=== PATIENT | male | born 1945 | race Caucasian/White ===

== ENCOUNTER 2020-03-10 09:25 | Emergency (ER) | payer MEDICARE, OTHER ==
[~2020-03-10] VITALS: Ht 172.7 cm; Wt 66.2 kg
[~2020-03-10 09:25] MED LIST: CYAN50008 PO; Doxycycline Hyclate PO; GLIM1TAB18 PO; GLYB5TAB7 PO; METF-440 PO; MONT10TA27 PO; MULTIVITAMINS PO; PANT40TA2 PO; PRED20TA PO; [UNRECOGNIZED DRUG - OTHER] PO
--- NOTE | 2020-03-10 09:44 | NUR ---
Dr. Almaraz at the bedside for MSE.
[2020-03-10] MEDS ORDERED: OXCA150T5 PO (10:10)
[2020-03-10] MEDS ORDERED: MAGN400O6 PO (10:10)
[2020-03-10] MEDS ORDERED: QUET25TA PO (10:10)
[2020-03-10] MEDS ORDERED: MULT1TAB11 PO (10:15)
[2020-03-10] MEDS ORDERED: DOCU250C14 PO (10:22)
[2020-03-10] MEDS ORDERED: CRAN450T3 PO (10:22)
[2020-03-10] MEDS ORDERED: NA P133E PR (10:22)
[2020-03-10] MEDS ORDERED: ACET325T53 PO (10:24)
[2020-03-10 10:56] LABS: BASOPHILS % (AUTO) 0.4 % (0.0-2.0); EOSINOPHILS # (AUTO) 0.6 K/uL (0.0-0.7); HEMATOCRIT 42.3 % (36.7-47.1); LYMPHOCYTES # (AUTO) 1.3 K/uL (20.0-40.0); LYMPHOCYTES % (AUTO) 14.9 % (20.5-51.5); MEAN CORPUSCULAR HGB CONC 33 g/dL (32.5-36.3); MEAN CORPUSCULAR VOLUME 87.6 fL (73.0-96.2); MONOCYTES # (AUTO) 0.7 K/uL (2.0-10.0); MONOCYTES % (AUTO) 8.8 % (0.0-11.0); NEUTROPHILS # (AUTO) 5.8 K/uL (1.8-8.9); NEUTROPHILS % (AUTO) 68.9 % (38.5-71.5); PLATELET COUNT (AUTO) 248 K/uL (152-348); RED BLOOD CELL COUNT(AUTO) 4.83 MIL/uL (4.06-5.63); WHITE BLOOD COUNT (AUTO) 8.4 K/uL (3.6-10.2)
[2020-03-10 11:00] LABS: CREATININE 0.6 mg/dL (0.6-1.3); POTASSIUM 4.1 mmol/L (3.5-5.1)
--- NOTE | 2020-03-10 11:00 | NUR ---
lt elbow redness and skin abration dry clean wound with ns and triple antibotic appled done and marker by MD NONHEASVE DRESSING APPLE DONE
[2020-03-10 11:13] LABS: BILIRUBIN,DIRECT 0.2 mg/dL (0.0-0.2); BILIRUBIN,TOTAL 0.4 mg/dL (0.2-1.0); TOTAL PROTEIN, SERUM 7.1 g/dL (6.4-8.2)
[2020-03-10] MEDS ORDERED: NEOMY/BACITRA/POLYMYXIN B OINT UD PACKET TP ONE ×2 (11:15→11:26)
[2020-03-10] MEDS ORDERED: AZITHROMYCIN 250 MG TABLET PO ONE (11:45)
[2020-03-10 12:19] VITALS: BP 99/49
--- NOTE | 2020-03-10 13:51 | NUR ---
IV removed. Catheter intact and site benign. Pressure and 4x4 gauze applied to site. No bleeding noted. Patient discharged to [facility] in stable condition via [facility] ambulance. Written and verbal after care instructions given to EMT from [facility] nurse Noemi. Patient's nurse verbalized understanding & compliance of instructions. Stressed follow up or return to ER for worsening s/s.
== END 2020-03-10 13:51 ==
LOC: ER 09:25
DX: J20.9 Acute bronchitis, unspecified (principal); R50.9 Fever, unspecified; Z20.828 Contact with and (suspected) exposure to other viral communicable diseases; G30.9 Alzheimer's disease, unspecified; F02.80 Dementia in other diseases classified elsewhere, unspecified severity, without behavioral disturbance, psychotic disturbance, mood disturbance, and anxiety; J44.0 Chronic obstructive pulmonary disease with (acute) lower respiratory infection; K21.9 Gastro-esophageal reflux disease without esophagitis; G20 Parkinson's disease; F17.200 Nicotine dependence, unspecified, uncomplicated; E11.40 Type 2 diabetes mellitus with diabetic neuropathy, unspecified; Z79.84 Long term (current) use of oral hypoglycemic drugs
CPT/HCPCS: 36415; 70030-TC; 71045; 83605; 85025; 87040; A4663